=== PATIENT | female | born 1985 | race Caucasian/White ===

== ENCOUNTER 2017-12-02 21:12 | Inpatient (IN) | payer MEDICAID, OTHER ==
[~2017-12-02] VITALS: Ht 162.6 cm; Wt 61.1 kg
[~2017-12-02 21:12] MED LIST: BUPR150T73 PO; PARO40TA61 PO
[2017-12-02] MEDS ORDERED: SODIUM CHLORIDE 0.9% 1,000ML IVBOLUS ONE (22:00)
[2017-12-02] MEDS: PLEASE ENTER HEIGHT AND WEIGHT MC SCH (22:00)
[2017-12-02 22:20] LABS: AMPHETAMINE SCREEN, URINE Negative (Negative); BARBITURATE SCREEN, URINE Negative (Negative); BENZODIAZEPINE SCREEN, URINE Negative (Negative); CANNABINOID SCREEN, URINE Positive (Negative); COCAINE SCREEN, URINE Negative (Negative); METHADONE SCREEN, URINE Negative (Negative); OPIATE SCREEN, URINE Negative (Negative)
[2017-12-02 22:22] LABS: BASOPHILS # (AUTO) 0.03 x10^3/uL (0-0.1); BASOPHILS % (AUTO) 0 % (0-1); EOSINOPHILS # (AUTO) 0.02 x10^3/uL (0-0.4); EOSINOPHILS % (AUTO) 0 % (1-7); LYMPHOCYTES # (AUTO) 0.74 x10^3/uL (1-3.4); LYMPHOCYTES % (AUTO) 7 % (22-44); MD NO; MEAN CORPUSCULAR HEMOGLOBIN 30.2 pg (27.0-34.8); MEAN CORPUSCULAR VOLUME 88.8 fL (80-100); MEAN PLATELET VOLUME 9.9 fL (7.4-10.4); MONOCYTES % (AUTO) 4 % (2-9); NEUTROPHILS # (AUTO) 9.57 x10^3/uL (1.8-6.8); NEUTROPHILS % (AUTO) 89 % (42-75); PLATELET COUNT 196 x10^3/uL (130-400); RED CELL DISTRIBUTION WIDTH 14.4 % (9.6-15.2)
[2017-12-02 22:28] LABS: ANION GAP 9 mmol/L (5-15); CALCIUM 8.5 mg/dL (8.5-10.1); CHLORIDE 105 mmol/L (98-107)
[2017-12-02 22:29] LABS: MICROSCOPIC INDICATED
[2017-12-02 22:30] LABS: CULTURE INDICATED? YES
[2017-12-02 22:33] LABS: SALICYLATE LEVEL < 1.7 mg/dL (2.8-20.0)
[2017-12-02 22:39] LABS: ALANINE AMINOTRANSFERASE 15 U/L (12-78); ALKALINE PHOSPHATASE 50 U/L (45-117); BILIRUBIN,TOTAL 0.4 mg/dL (0.2-1.0); CREATININE 0.84 mg/dL (0.55-1.02); THYROID STIMULATING HORMONE 0.684 mIU/L (0.358-3.740); TOTAL PROTEIN 7.3 g/dL (6.4-8.2)
[2017-12-02 22:44] LABS: ACETAMINOPHEN < 2 mcg/mL (10-30)
[2017-12-02] MEDS ORDERED: LORazepam 2 MG/ML, 1ML ONE (23:46)
[2017-12-02 23:54] LABS: HCG UR SG 1.028 (1.003-1.030)
[2017-12-03] MEDS ORDERED: ZIPRASIDONE 20 MG INJ IM ONE ×2 (01:30→01:44)
[2017-12-03] MEDS ORDERED: SODIUM CHLORIDE 0.9% 1,000ML IVBOLUS ONE ×4 (02:30→15:00)
[2017-12-03] MEDS ORDERED: SODIUM CHLORIDE 0.9% 1,000 ML IV SCH (02:36)
[2017-12-03] MEDS ORDERED: ONDANSETRON 2MG/ML, 2ML IVPush PRN (03:00)
[2017-12-03] MEDS: SODIUM CHLORIDE 0.9% 1,000 ML IV SCH ×2 (03:44→12:23)
[2017-12-03] MEDS ORDERED: ENOXAPARIN 40 MG/0.4 ML ONE (03:46)
[2017-12-03] MEDS: ENOXAPARIN 40 MG/0.4 ML SQ SCH (03:47)
[2017-12-03] MEDS: PLEASE ENTER HEIGHT AND WEIGHT MC SCH (06:00)
[2017-12-03] MEDS ORDERED: LORazepam 2 MG/ML, 1ML ONE (07:32)
[2017-12-03] MEDS ORDERED: PROPOFOL 100 ML IV STA (07:51)
[2017-12-03] MEDS ORDERED: SUCCINYLCHOLINE 20 MG/ML, 10ML IVPush ONE (08:00)
[2017-12-03] MEDS ORDERED: ETOMIDATE 20 MG/10 ML IVPush ONE (08:00)
[2017-12-03] MEDS ORDERED: LORazepam 2 MG/ML, 1ML IVPush ONE ×2 (08:00)
[2017-12-03 08:24] LABS: ALBUMIN 3.5 g/dL (3.4-5.0); ANION GAP 7 mmol/L (5-15); CALCIUM 7.4 mg/dL (8.5-10.1); CHLORIDE 111 mmol/L (98-107)
[2017-12-03 08:28] LABS: ALANINE AMINOTRANSFERASE 14 U/L (12-78); ALKALINE PHOSPHATASE 49 U/L (45-117); BILIRUBIN,TOTAL 0.6 mg/dL (0.2-1.0); CREATININE 0.75 mg/dL (0.55-1.02); TOTAL PROTEIN 6.3 g/dL (6.4-8.2)
[2017-12-03] MEDS ORDERED: PROPOFOL 100 ML IV ONE (09:00)
[2017-12-03] MEDS ORDERED: MIDAZOLAM 1 MG/ML, 5ML IVPush ONE (09:00)
[2017-12-03] MEDS ORDERED: CEFTRIAXONE PMX 1GM/50ML 50 ML ONE (09:22)
[2017-12-03] MEDS ORDERED: NOREPINEPHRINE 4 MG in SODIUM CHLORIDE 0.9% 246 ML IV ONE (09:30)
[2017-12-03] MEDS ORDERED: CEFTRIAXONE PMX 1GM/50ML 50 ML IVPB ONE (10:00)
[2017-12-03] MEDS ORDERED: MIDAZOLAM 1 MG/ML, 2ML IVPush ONE (10:00)
[2017-12-03] MEDS ORDERED: PROPOFOL 10 MG/ML, 100ML IV ONE (10:30)
[2017-12-03] MEDS ORDERED: SUCCINYLCHOLINE 20 MG/ML, 10ML ONE (10:30)
[2017-12-03] MEDS ORDERED: ETOMIDATE 20 MG/10 ML ONE (10:30)
[2017-12-03] MEDS ORDERED: MIDAZOLAM 1 MG/ML, 5ML ONE (10:30)
[2017-12-03] MEDS ORDERED: LEVETIRACETAM 1,000 MG in SODIUM CHLORIDE 0.9% 100 ML IV ONE (11:00)
[2017-12-03] MEDS: PIPERACILLIN/TAZO/PMX 3.375GM 50 ML IV SCH ×3 (11:30→23:40)
[2017-12-03] MEDS ORDERED: ACYCLOVIR IV SCH ×3 (11:30→12:30)
[2017-12-03] MEDS ORDERED: SODIUM CHLORIDE 0.9% IV SCH ×3 (11:30→12:30)
[2017-12-03] MEDS ORDERED: VANCOMYCIN PER PHARMACY MC PRN (11:30)
[2017-12-03] MEDS ORDERED: DEXAMETHASONE 4 MG/ML, 5ML ONE (11:42)
[2017-12-03] MEDS ORDERED: PIPERACILLIN/TAZO/PMX 3.375GM 50 ML ONE (11:42)
[2017-12-03 12:11] LABS: MICROSCOPIC INDICATED
[2017-12-03] MEDS ORDERED: PHARMACOKINETIC MONITORING MC PRN (12:30)
[2017-12-03] MEDS ORDERED: PHARMACOKINETIC CONSULTATION MC ONE (12:30)
[2017-12-03] MEDS: DEXAMETHASONE 10 MG in SODIUM CHLORIDE 0.9% 50 ML IV SCH ×3 (12:40→23:40)
[2017-12-03 12:52] LABS: CULTURE INDICATED? NO
[2017-12-03] MEDS ORDERED: ACETAMINOPHEN 325 MG TABLET ONE (13:05)
[2017-12-03] MEDS ORDERED: FENTANYL PF 100 MCG/2ML ONE (13:47)
[2017-12-03] MEDS: ACYCLOVIR IV SCH ×2 (14:29→22:37)
[2017-12-03] MEDS: VANCOMYCIN 1,400 MG in SODIUM CHLORIDE 0.9% 250 ML IV SCH (14:29)
[2017-12-03] MEDS: SODIUM CHLORIDE 0.9% IV SCH ×2 (14:29→22:37)
[2017-12-03] MEDS ORDERED: FENTANYL PF 100 MCG/2ML IV ONE (14:30)
[2017-12-03] MEDS ORDERED: NOREPINEPHRINE 4 MG in SODIUM CHLORIDE 0.9% 246 ML IV PRN (14:31)
[2017-12-03] MEDS ORDERED: PHARMACY MAY ADJ FOR RENAL FX MC SCH (15:00)
[2017-12-03] MEDS ORDERED: LACTULOSE 20 GM/30 ML UDC NG PRN (15:00)
[2017-12-03] MEDS ORDERED: BISACODYL 10 MG SUPP PR PRN (15:00)
[2017-12-03] MEDS ORDERED: SENNOSIDES 8.8 MG/5 ML ORAL SOL NG PRN (15:00)
[2017-12-03] MEDS ORDERED: SENNA/DOCUSATE TABLET NG PRN (15:00)
[2017-12-03] MEDS ORDERED: LIDOCAINE-MPF 1%, 2ML ENDO PRN (15:00)
[2017-12-03] MEDS ORDERED: LIDOCAINE 1%, 20ML ONE (16:18)
[2017-12-03] MEDS: FAMOTIDINE 20 MG/2 ML IV SCH (17:27)
[2017-12-03 17:45] LABS: GLUCOSE, CSF 79 mg/dL (40-80); TOTAL PROTEIN,CSF 25 mg/dL (15-45)
[2017-12-03] MEDS: PROPOFOL 100 ML IV PRN ×2 (18:30→19:24)
[2017-12-03] MEDS: ALBUTEROL/IPRATROPIUM 2.5MG/0.5MG, 3 ML INLINE SCH ×2 (18:43→22:49)
[2017-12-03] MEDS: LEVETIRACETAM 1,000 MG in SODIUM CHLORIDE 0.9% 100 ML IV SCH (23:39)
[2017-12-04] MEDS: VANCOMYCIN 1,400 MG in SODIUM CHLORIDE 0.9% 250 ML IV SCH ×2 (02:35→13:33)
[2017-12-04] MEDS: ALBUTEROL/IPRATROPIUM 2.5MG/0.5MG, 3 ML INLINE SCH ×6 (03:00→22:48)
[2017-12-04] MEDS: ENOXAPARIN 40 MG/0.4 ML SQ SCH (03:33)
[2017-12-04] MEDS: PROPOFOL 100 ML IV PRN ×4 (03:33→23:26)
[2017-12-04 03:55] VITALS: BP_SYST 103; BP_SYST 120; BP_DIAS 63; BP_DIAS 64
[2017-12-04 04:46] LABS: MEAN CORPUSCULAR HGB CONC 33.7 g/dL (32.4-35.8); MEAN PLATELET VOLUME 10.5 fL (7.4-10.4); PLATELET COUNT 160 x10^3/uL (130-400); RED BLOOD COUNT 3.68 x10^6/uL (3.82-5.3); RED CELL DISTRIBUTION WIDTH 14.6 % (9.6-15.2)
[2017-12-04 04:53] LABS: CHLORIDE 112 mmol/L (98-107)
[2017-12-04 05:08] LABS: ALANINE AMINOTRANSFERASE 16 U/L (12-78); ALBUMIN 2.8 g/dL (3.4-5.0); ALKALINE PHOSPHATASE 39 U/L (45-117); ANION GAP 12 mmol/L (5-15); BILIRUBIN,TOTAL 0.4 mg/dL (0.2-1.0); CALCIUM 7.4 mg/dL (8.5-10.1); CREATININE 0.81 mg/dL (0.55-1.02); THYROID STIMULATING HORMONE 0.137 mIU/L (0.358-3.740); TOTAL PROTEIN 5.7 g/dL (6.4-8.2)
[2017-12-04 05:14] LABS: MD YES
[2017-12-04 05:16] LABS: BAND#(MANUAL) 1.35 x10^3/uL; BANDS%(MANUAL) 13 % (0-7); LYMPHS% (MANUAL) 1 % (22-44); MONOS#(MANUAL) 0.31 x10^3/uL (0.3-2.7); MONOS% (MANUAL) 3 % (2-9); SEG#(MANUAL) 8.63 x10^3/uL (1.8-6.8); SEGS% (MANUAL) 83 % (42-75)
[2017-12-04 05:17] LABS: <PLATELET ESTIMATE> ADEQUATE; ANISOCYTOSIS 1+; LARGE PLATELETS 1+; OVALOCYTES 1+
[2017-12-04] MEDS: FAMOTIDINE 20 MG/2 ML IV SCH ×2 (05:45→17:44)
[2017-12-04] MEDS: DEXAMETHASONE 10 MG in SODIUM CHLORIDE 0.9% 50 ML IV SCH (05:46)
[2017-12-04] MEDS: PIPERACILLIN/TAZO/PMX 3.375GM 50 ML IV SCH ×4 (05:46→23:26)
[2017-12-04] MEDS: ACYCLOVIR IV SCH ×2 (06:23→15:46)
[2017-12-04] MEDS: SODIUM CHLORIDE 0.9% IV SCH ×2 (06:23→15:46)
[2017-12-04 08:50] LABS: FREE T4 (FREE THYROXINE) 0.76 ng/dL (0.76-1.46)
[2017-12-04] MEDS: LEVETIRACETAM 1,000 MG in SODIUM CHLORIDE 0.9% 100 ML IV SCH ×2 (11:32→23:26)
[2017-12-05] MEDS: SODIUM CHLORIDE 0.9% IV SCH (00:06)
[2017-12-05] MEDS: ACYCLOVIR IV SCH (00:06)
[2017-12-05] MEDS: VANCOMYCIN 1,400 MG in SODIUM CHLORIDE 0.9% 250 ML IV SCH (01:34)
[2017-12-05] MEDS ORDERED: SODIUM CHLORIDE 0.9% 1,000 ML IV SCH (02:36)
[2017-12-05] MEDS: ALBUTEROL/IPRATROPIUM 2.5MG/0.5MG, 3 ML INLINE SCH ×6 (03:00→23:02)
[2017-12-05 04:00] VITALS: BP 110/69
[2017-12-05] MEDS: PROPOFOL 100 ML IV PRN ×4 (04:11→22:27)
[2017-12-05] MEDS: ENOXAPARIN 40 MG/0.4 ML SQ SCH (04:11)
[2017-12-05 04:55] LABS: BASOPHILS # (AUTO) 0.02 x10^3/uL (0-0.1); BASOPHILS % (AUTO) 0 % (0-1); EOSINOPHILS # (AUTO) 0.02 x10^3/uL (0-0.4); EOSINOPHILS % (AUTO) 0 % (1-7); LYMPHOCYTES # (AUTO) 0.91 x10^3/uL (1-3.4); LYMPHOCYTES % (AUTO) 13 % (22-44); MD NO; MEAN CORPUSCULAR HEMOGLOBIN 29.9 pg (27.0-34.8); MEAN CORPUSCULAR HGB CONC 33.9 g/dL (32.4-35.8); MEAN CORPUSCULAR VOLUME 88.1 fL (80-100); MEAN PLATELET VOLUME 10.2 fL (7.4-10.4); MONOCYTES # (AUTO) 0.26 x10^3/uL (0.2-0.8); MONOCYTES % (AUTO) 4 % (2-9); NEUTROPHILS % (AUTO) 83 % (42-75); PLATELET COUNT 145 x10^3/uL (130-400); RED BLOOD COUNT 3.18 x10^6/uL (3.82-5.3); RED CELL DISTRIBUTION WIDTH 15.2 % (9.6-15.2)
[2017-12-05 05:08] LABS: ANION GAP 8 mmol/L (5-15); CALCIUM 7.1 mg/dL (8.5-10.1); CHLORIDE 110 mmol/L (98-107)
[2017-12-05] MEDS: FAMOTIDINE 20 MG/2 ML IV SCH ×2 (05:51→17:25)
[2017-12-05] MEDS: PIPERACILLIN/TAZO/PMX 3.375GM 50 ML IV SCH (05:51)
[2017-12-05] MEDS ORDERED: DIAZEPAM 5 MG/ML, 2ML IVPush SCH (09:00)
[2017-12-05] MEDS ORDERED: FUROSEMIDE 20 MG/2 ML IV ONE (09:30)
[2017-12-05] MEDS: LEVETIRACETAM 1,000 MG in SODIUM CHLORIDE 0.9% 100 ML IV SCH ×2 (11:26→23:04)
[2017-12-05] MEDS: POTASSIUM CHLORIDE 10% 40 MEQ/30 ML UDC PO SCH ×2 (11:26→20:45)
[2017-12-05] MEDS: ACETAMINOPHEN 325 MG TABLET PO PRN (15:45)
[2017-12-05] MEDS: DIAZEPAM 5 MG/ML, 10ML VIAL IVPush SCH ×2 (17:25→23:05)
[2017-12-06] MEDS: ALBUTEROL/IPRATROPIUM 2.5MG/0.5MG, 3 ML INLINE SCH ×6 (03:31→22:28)
[2017-12-06 04:12] LABS: BASOPHILS # (AUTO) 0.02 x10^3/uL (0-0.1); BASOPHILS % (AUTO) 0 % (0-1); EOSINOPHILS # (AUTO) 0.15 x10^3/uL (0-0.4); EOSINOPHILS % (AUTO) 3 % (1-7); LYMPHOCYTES # (AUTO) 0.82 x10^3/uL (1-3.4); LYMPHOCYTES % (AUTO) 15 % (22-44); MD NO; MEAN CORPUSCULAR HEMOGLOBIN 29.5 pg (27.0-34.8); MEAN CORPUSCULAR HGB CONC 33.4 g/dL (32.4-35.8); MEAN CORPUSCULAR VOLUME 88.3 fL (80-100); MEAN PLATELET VOLUME 9.3 fL (7.4-10.4); MONOCYTES # (AUTO) 0.25 x10^3/uL (0.2-0.8); MONOCYTES % (AUTO) 5 % (2-9); NEUTROPHILS # (AUTO) 4.15 x10^3/uL (1.8-6.8); NEUTROPHILS % (AUTO) 77 % (42-75); PLATELET COUNT 139 x10^3/uL (130-400); RED BLOOD COUNT 3.41 x10^6/uL (3.82-5.3); RED CELL DISTRIBUTION WIDTH 15.2 % (9.6-15.2)
[2017-12-06 04:23] LABS: ANION GAP 7 mmol/L (5-15); CALCIUM 7.5 mg/dL (8.5-10.1); CHLORIDE 106 mmol/L (98-107); CREATININE 0.53 mg/dL (0.55-1.02); TRIGLYCERIDES 145 mg/dL (50-200)
[2017-12-06 04:25] LABS: CREATINE KINASE, TOTAL 507 U/L (26-192)
[2017-12-06] MEDS: ENOXAPARIN 40 MG/0.4 ML SQ SCH (04:45)
[2017-12-06 04:49] VITALS: BP 131/85
[2017-12-06] MEDS: DIAZEPAM 5 MG/ML, 10ML VIAL IVPush SCH ×4 (05:21→22:49)
[2017-12-06] MEDS: FAMOTIDINE 20 MG/2 ML IV SCH ×2 (05:26→17:23)
[2017-12-06] MEDS: FENTANYL PF 100 MCG/2ML IVPush PRN ×3 (10:50→23:59)
[2017-12-06] MEDS: QUETIAPINE 25MG TABLET NG SCH ×3 (10:50→21:17)
[2017-12-06] MEDS: LEVETIRACETAM 1,000 MG in SODIUM CHLORIDE 0.9% 100 ML IV SCH ×2 (11:45→22:49)
[2017-12-06] MEDS: PROPOFOL 100 ML IV PRN ×2 (14:59→20:15)
[2017-12-07] MEDS: PROPOFOL 100 ML IV PRN ×2 (00:13→04:00)
[2017-12-07] MEDS: ALBUTEROL/IPRATROPIUM 2.5MG/0.5MG, 3 ML INLINE SCH ×2 (02:45→07:00)
[2017-12-07] MEDS: ENOXAPARIN 40 MG/0.4 ML SQ SCH (04:00)
[2017-12-07 04:53] LABS: ANION GAP 9 mmol/L (5-15); CALCIUM 8.1 mg/dL (8.5-10.1); CHLORIDE 106 mmol/L (98-107); CREATININE 0.42 mg/dL (0.55-1.02)
[2017-12-07 04:55] LABS: BASOPHILS # (AUTO) 0.02 x10^3/uL (0-0.1); BASOPHILS % (AUTO) 0 % (0-1); EOSINOPHILS # (AUTO) 0.32 x10^3/uL (0-0.4); EOSINOPHILS % (AUTO) 6 % (1-7); LYMPHOCYTES # (AUTO) 0.95 x10^3/uL (1-3.4); LYMPHOCYTES % (AUTO) 18 % (22-44); MD NO; MEAN CORPUSCULAR HEMOGLOBIN 29.5 pg (27.0-34.8); MEAN CORPUSCULAR HGB CONC 33.3 g/dL (32.4-35.8); MEAN CORPUSCULAR VOLUME 88.6 fL (80-100); MEAN PLATELET VOLUME 9.3 fL (7.4-10.4); MONOCYTES # (AUTO) 0.24 x10^3/uL (0.2-0.8); MONOCYTES % (AUTO) 5 % (2-9); NEUTROPHILS % (AUTO) 71 % (42-75); PLATELET COUNT 189 x10^3/uL (130-400); RED BLOOD COUNT 3.79 x10^6/uL (3.82-5.3); RED CELL DISTRIBUTION WIDTH 14.4 % (9.6-15.2)
[2017-12-07] MEDS: FENTANYL PF 100 MCG/2ML IVPush PRN (05:11)
[2017-12-07] MEDS: FAMOTIDINE 20 MG/2 ML IV SCH ×2 (05:11→17:30)
[2017-12-07] MEDS: DIAZEPAM 5 MG/ML, 10ML VIAL IVPush SCH (05:12)
[2017-12-07] MEDS: QUETIAPINE 25MG TABLET NG SCH (09:20)
[2017-12-07] MEDS ORDERED: DIAZEPAM 5 MG/ML, 10ML VIAL IVPush PRN (11:00)
[2017-12-07] MEDS: LEVETIRACETAM 1,000 MG in SODIUM CHLORIDE 0.9% 100 ML IV SCH ×2 (11:00→23:11)
[2017-12-07] MEDS ORDERED: PHENOL THROAT SPRAY BOTTLE MM PRN (16:00)
[2017-12-07] MEDS ORDERED: RACEPINEPHRINE INH 2.25%, 0.5ML ONE (16:51)
[2017-12-07] MEDS: ALBUTEROL/IPRATROPIUM 2.5MG/0.5MG, 3 ML NPPB SCH ×2 (17:15→19:39)
[2017-12-07] MEDS ORDERED: RACEPINEPHRINE INH 2.25%, 0.5ML NPPB PRN (17:30)
[2017-12-07] MEDS ORDERED: ALBUTEROL/IPRATROPIUM 2.5MG/0.5MG, 3 ML NPPB PRN (17:30)
[2017-12-07] MEDS: CALCIUM CARBONATE 500 MG TAB.CHEW PO PRN ×2 (22:36→23:21)
[2017-12-07] MEDS: PANTOPROZOLE 40MG TABLET PO SCH (22:37)
[2017-12-08] MEDS: CALCIUM CARBONATE 500 MG TAB.CHEW PO PRN ×5 (00:47→19:54)
[2017-12-08] MEDS: ENOXAPARIN 40 MG/0.4 ML SQ SCH (03:00)
[2017-12-08] MEDS: ALBUTEROL/IPRATROPIUM 2.5MG/0.5MG, 3 ML NPPB SCH ×2 (03:30→07:14)
[2017-12-08 04:00] VITALS: BP 146/91
[2017-12-08 04:00] LABS: BASOPHILS # (AUTO) 0.02 x10^3/uL (0-0.1); BASOPHILS % (AUTO) 0 % (0-1); EOSINOPHILS % (AUTO) 8 % (1-7); LYMPHOCYTES # (AUTO) 0.77 x10^3/uL (1-3.4); LYMPHOCYTES % (AUTO) 15 % (22-44); MD NO; MEAN CORPUSCULAR HEMOGLOBIN 29.6 pg (27.0-34.8); MEAN CORPUSCULAR HGB CONC 33.8 g/dL (32.4-35.8); MEAN CORPUSCULAR VOLUME 87.8 fL (80-100); MEAN PLATELET VOLUME 8.7 fL (7.4-10.4); MONOCYTES # (AUTO) 0.29 x10^3/uL (0.2-0.8); MONOCYTES % (AUTO) 6 % (2-9); NEUTROPHILS % (AUTO) 72 % (42-75); PLATELET COUNT 227 x10^3/uL (130-400); RED BLOOD COUNT 4.02 x10^6/uL (3.82-5.3); RED CELL DISTRIBUTION WIDTH 13.8 % (9.6-15.2)
[2017-12-08 04:07] LABS: ANION GAP 8 mmol/L (5-15); CALCIUM 8.9 mg/dL (8.5-10.1); CHLORIDE 106 mmol/L (98-107); CREATININE 0.45 mg/dL (0.55-1.02)
[2017-12-08] MEDS: FAMOTIDINE 20 MG/2 ML IV SCH (05:30)
[2017-12-08] MEDS: ACETAMINOPHEN 325 MG TABLET PO PRN (10:26)
[2017-12-08 19:48] VITALS: BP 129/70
[2017-12-08 19:55] VITALS: BP 129/70
[2017-12-08] MEDS: PANTOPROZOLE 40MG TABLET PO SCH (21:40)
[2017-12-09] MEDS: ENOXAPARIN 40 MG/0.4 ML SQ SCH (02:30)
[2017-12-09 02:46] VITALS: BP 113/69
[2017-12-09 04:59] LABS: BASOPHILS # (AUTO) 0.02 x10^3/uL (0-0.1); BASOPHILS % (AUTO) 0 % (0-1); EOSINOPHILS # (AUTO) 0.36 x10^3/uL (0-0.4); EOSINOPHILS % (AUTO) 7 % (1-7); LYMPHOCYTES # (AUTO) 1.33 x10^3/uL (1-3.4); LYMPHOCYTES % (AUTO) 26 % (22-44); MD NO; MEAN CORPUSCULAR HEMOGLOBIN 29.7 pg (27.0-34.8); MEAN CORPUSCULAR HGB CONC 33.8 g/dL (32.4-35.8); MEAN PLATELET VOLUME 8.3 fL (7.4-10.4); MONOCYTES # (AUTO) 0.41 x10^3/uL (0.2-0.8); MONOCYTES % (AUTO) 8 % (2-9); NEUTROPHILS # (AUTO) 2.98 x10^3/uL (1.8-6.8); NEUTROPHILS % (AUTO) 59 % (42-75); PLATELET COUNT 256 x10^3/uL (130-400); RED BLOOD COUNT 4.14 x10^6/uL (3.82-5.3); RED CELL DISTRIBUTION WIDTH 14.1 % (9.6-15.2)
[2017-12-09 05:08] LABS: ANION GAP 5 mmol/L (5-15); CALCIUM 8.8 mg/dL (8.5-10.1); CHLORIDE 106 mmol/L (98-107)
[2017-12-09 05:09] LABS: CREATININE 0.45 mg/dL (0.55-1.02); TRIGLYCERIDES 169 mg/dL (50-200)
[2017-12-09 07:27] VITALS: BP 104/71
[2017-12-09] MEDS: PANTOPROZOLE 40MG TABLET PO SCH (10:06)
[2017-12-09] MEDS: ACETAMINOPHEN 325 MG TABLET PO PRN ×2 (10:31→18:01)
[2017-12-09 13:19] VITALS: BP 104/65
[2017-12-09 19:18] VITALS: BP 100/64
[2017-12-10 01:02] VITALS: BP 110/64
[2017-12-10] MEDS: ENOXAPARIN 40 MG/0.4 ML SQ SCH (03:00)
[2017-12-10 04:42] LABS: BASOPHILS # (AUTO) 0.03 x10^3/uL (0-0.1); BASOPHILS % (AUTO) 1 % (0-1); EOSINOPHILS # (AUTO) 0.38 x10^3/uL (0-0.4); EOSINOPHILS % (AUTO) 6 % (1-7); LYMPHOCYTES # (AUTO) 1.63 x10^3/uL (1-3.4); LYMPHOCYTES % (AUTO) 27 % (22-44); MD NO; MEAN CORPUSCULAR HEMOGLOBIN 29.5 pg (27.0-34.8); MEAN CORPUSCULAR HGB CONC 33.5 g/dL (32.4-35.8); MEAN CORPUSCULAR VOLUME 88.2 fL (80-100); MEAN PLATELET VOLUME 8.4 fL (7.4-10.4); MONOCYTES # (AUTO) 0.43 x10^3/uL (0.2-0.8); MONOCYTES % (AUTO) 7 % (2-9); NEUTROPHILS # (AUTO) 3.67 x10^3/uL (1.8-6.8); NEUTROPHILS % (AUTO) 60 % (42-75); PLATELET COUNT 299 x10^3/uL (130-400); RED BLOOD COUNT 4.32 x10^6/uL (3.82-5.3); RED CELL DISTRIBUTION WIDTH 13.9 % (9.6-15.2)
[2017-12-10 04:49] LABS: ANION GAP 6 mmol/L (5-15); CALCIUM 8.5 mg/dL (8.5-10.1); CHLORIDE 106 mmol/L (98-107); CREATININE 0.52 mg/dL (0.55-1.02)
[2017-12-10] MEDS: PANTOPROZOLE 40MG TABLET PO SCH (07:49)
[2017-12-10 08:00] VITALS: BP 110/64
[2017-12-10 14:00] VITALS: BP 107/64
[2017-12-10 19:43] VITALS: BP 100/61
[2017-12-11] MEDS: ENOXAPARIN 40 MG/0.4 ML SQ SCH (02:01)
[2017-12-11 04:25] VITALS: BP 102/64
[2017-12-11] MEDS: PANTOPROZOLE 40MG TABLET PO SCH (07:58)
[2017-12-11 08:13] VITALS: BP 101/67
[2017-12-11 13:05] VITALS: BP 111/69
[2017-12-11 20:06] VITALS: BP 107/67
[2017-12-12 00:32] VITALS: BP 137/99
[2017-12-12] MEDS: ENOXAPARIN 40 MG/0.4 ML SQ SCH (03:45)
[2017-12-12 07:39] VITALS: BP 99/61
[2017-12-12] MEDS: PANTOPROZOLE 40MG TABLET PO SCH (08:52)
[2017-12-12] MEDS ORDERED: ALUMINUM/MAG/SIMETHICONE 30 ML UDC PO ONE (11:30)
[2017-12-12] MEDS ORDERED: ALUMINUM/MAG/SIMETHICONE 30 ML UDC PO PRN (11:30)
[2017-12-12 13:35] VITALS: BP 103/58
[2017-12-12 19:11] VITALS: BP 108/51
[2017-12-13] VITALS (7 sets, daily range): BP systolic 98–176; BP diastolic 53–85
[2017-12-13] MEDS: ENOXAPARIN 40 MG/0.4 ML SQ SCH (03:00)
[2017-12-13] MEDS: PANTOPROZOLE 40MG TABLET PO SCH (07:54)
[2017-12-14] MEDS: ENOXAPARIN 40 MG/0.4 ML SQ SCH (03:00)
[2017-12-14 08:52] VITALS: BP 116/61
[2017-12-14] MEDS: PANTOPROZOLE 40MG TABLET PO SCH (09:00)
== END 2017-12-14 17:25 | DRG 917 ==
LOC: ED 22:15 → EDIP 12-03 02:36 → SUATTDRO 12-03 02:36 → CCU 12-03 11:54 → 3NW 12-08 13:41 → 4WST 12-12 00:32 → 3E 12-13 23:08
PROVIDERS: ADMIT Hospitalist; ATTEND Hospitalist
PROC: 0T9B70Z Drainage of Bladder with Drainage Device, Via Natural or Artificial Opening (ICD-10-PCS; 2017-12-02)
PROC: 0T9B70Z Drainage of Bladder with Drainage Device, Via Natural or Artificial Opening (ICD-10-PCS; principal; 2017-12-03)
PROC: 5A1945Z Respiratory Ventilation, 24-96 Consecutive Hours (ICD-10-PCS; 2017-12-03)
PROC: 009U3ZX Drainage of Spinal Canal, Percutaneous Approach, Diagnostic (ICD-10-PCS; 2017-12-03)
PROC: B01B1ZZ Fluoroscopy of Spinal Cord using Low Osmolar Contrast (ICD-10-PCS; 2017-12-03)
PROC: 0BH17EZ Insertion of Endotracheal Airway into Trachea, Via Natural or Artificial Opening (ICD-10-PCS; 2017-12-03)
PROC: 02HV33Z Insertion of Infusion Device into Superior Vena Cava, Percutaneous Approach (ICD-10-PCS; 2017-12-03)
PROC: B548ZZA Ultrasonography of Superior Vena Cava, Guidance (ICD-10-PCS; 2017-12-03)
DX: T42.1X2A Poisoning by iminostilbenes, intentional self-harm, initial encounter (principal); G92 Toxic encephalopathy; J96.01 Acute respiratory failure with hypoxia; J69.0 Pneumonitis due to inhalation of food and vomit; Z99.11 Dependence on respirator [ventilator] status; E87.2 Acidosis; I95.9 Hypotension, unspecified; M62.82 Rhabdomyolysis; H70.92 Unspecified mastoiditis, left ear; R56.9 Unspecified convulsions; B00.9 Herpesviral infection, unspecified; E05.90 Thyrotoxicosis, unspecified without thyrotoxic crisis or storm; F32.9 Major depressive disorder, single episode, unspecified; F43.10 Post-traumatic stress disorder, unspecified; J32.9 Chronic sinusitis, unspecified; T51.92XA Toxic effect of unspecified alcohol, intentional self-harm, initial encounter; T62.0X2A Toxic effect of ingested mushrooms, intentional self-harm, initial encounter; Y92.89 Other specified places as the place of occurrence of the external cause; Z91.5 Personal history of self-harm
CPT/HCPCS: 36415; 36600; 51702; 62270; 70450; 70551; 71045; 80048; 80053; 80157; 80307; 80329; 81001; 81025; 82550; 82803; 82945; 82962; 83605; 83735; 84100; 84157; 84439; 84443; 84478; 84481; 85025; 87040; 87070; 87081; 87086; 87205; 87529; 89051; 93005; 94002; 94003; 94640; 95816; 95819; 96360; J0133; J0696; J1100; J1650; J1953; J2250; J2405; J2543; J2704; J3010; J3360; J3370; J3486; J3490; J7620; G0378; G0480; J0330; J1940; J2060; J7030; J7050; S0028

== ENCOUNTER 2020-03-10 01:15 | Emergency (ER) | payer MEDICAID ==
[~2020-03-10] VITALS: Ht 160 cm; Wt 60.0 kg
--- NOTE | 2020-03-10 01:28 | NUR ---
assessment made. chart up for MD to see.
--- NOTE | 2020-03-10 01:30 | NUR ---
PA at bedside.
--- NOTE | 2020-03-10 02:20 | NUR ---
URINE SAMPLE COLLECTED.
[2020-03-10 02:28] LABS: HCG UR SG 1.035 (1.003-1.030); MICROSCOPIC INDICATED
[2020-03-10 03:00] VITALS: BP 96/55
--- NOTE | 2020-03-10 03:01 | NUR ---
RESTING ON GURNEY, DENIES PAIN AT THIS TIME, VSS.
== END 2020-03-10 03:36 | disposition home or self-care (01) ==
LOC: ED 03:30
DX: O23.40 Unspecified infection of urinary tract in pregnancy, unspecified trimester (principal); Z3A.00 Weeks of gestation of pregnancy not specified
CPT/HCPCS: 81001; 81025; 87077; 87086; 99283